=== PATIENT | female | born 1950 | race Caucasian/White ===

== ENCOUNTER 2017-11-08 06:04 | Day surgery (SDC) | payer MEDICARE, OTHER ==
[2017-11-07 10:43] VITALS: BMI 18.6
[2017-11-08] MEDS ORDERED: CEFAZOLIN/Water 2 GM/20 ML SYRINGE ONE (07:09)
[2017-11-08] MEDS ORDERED: Fentanyl 100 MCG/2 ML VIAL ONE ×2 (07:27→08:20)
[2017-11-08] MEDS ORDERED: Midazolam HCl 2 mg/2 ml Vial ONE (07:27)
--- NOTE | 2017-11-08 08:41 | OP ---
DATE OF PROCEDURE: 11/08/2017 PREOPERATIVE DIAGNOSIS: Temporal arteritis. POSTOPERATIVE DIAGNOSIS: Temporal arteritis. PROCEDURE: Left temporal artery biopsy. SURGEON: Gil Calero M.D. ANESTHESIA: General endotracheal. ESTIMATED BLOOD LOSS: Minimal. PROCEDURE IN DETAIL: After consent was obtained, the patient was brought to operating room and placed supine on the operating room table. Appropriate anesthetic monitor was placed and general endotracheal anesthesia. General anesthesia was used as to the patient's previous experiences with any sort of local anesthetic. Left face was prepped and draped in usual sterile fashion. Skin incision was made in a skin crease anterior to the ear, dissection down the temporal artery was obtained with electrocautery and sharply. A segment of temporal artery was removed between 4-0 ties. The wound was then closed in layers. Dermabond was applied to the skin. The patient was awakened, extubated, and transferred to the recovery room in stable condition and will be sent home later today. KALIN
[2017-11-08] MEDS ORDERED: ePHEDrine/0.9% NaCl/PF SYRINGE 50 mg/10 ml ONE (14:34)
[2017-11-08] MEDS ORDERED: Propofol 200 MG/20 ML VIAL ONE (14:34)
== END 2017-11-08 09:15 | disposition home or self-care (01) ==
LOC: SDC 06:04
PROVIDERS: ATTEND Thoracic Surgery (Cardiothoracic Vascular Surgery)
PROC: 03BT0ZX Excision of Left Temporal Artery, Open Approach, Diagnostic (ICD-10-PCS; principal; 2017-11-08)
DX: M31.6 Other giant cell arteritis (principal); D64.9 Anemia, unspecified; E07.9 Disorder of thyroid, unspecified; Z79.52 Long term (current) use of systemic steroids; Z79.899 Other long term (current) drug therapy; Z91.041 Radiographic dye allergy status; Z91.040 Latex allergy status; Z91.018 Allergy to other foods
CPT/HCPCS: 88305; 88313; 93005; 93010; 96374; J2250; J2704; J3010

== ENCOUNTER 2017-11-20 17:40 | Emergency (ER) | payer MEDICARE, OTHER ==
[2017-11-20] MEDS ORDERED: Proparacaine 0.5% Opth 15 ML BOT ONE (20:31)
[2017-11-20 20:53] LABS: #Eosinphils 0.1 thou/uL (0.0-0.7); #Lymphocytes 1.8 thou/uL (1.20-3.40); #Monocytes 0.4 thou/uL (0.11-0.59); #Neutrophils 2.8 thou/uL (1.40-6.50); %Basophils 0.9 % (0.0-1.0); %Eosinophils 2.2 % (0.0-10.0); %Lymphocytes 35.5 % (21.0-51.0); %Monocytes 7.3 % (0.0-10.0); %Neutrophils 54.1 % (42.0-75.0); Hemoglobin 12.6 g/dL (12.0-16.0); Mean Corpuscular HGB CONC 33.5 g/dL (32.0-36.0); Mean Corpuscular Hemoglobin 30.8 pg (27.0-31.0); Mean Platelet Volume 5.7 fL (7.4-10.4); Platelet Count 224 thou/uL (130-400); Red Blood Cell (RBC) Count 4.08 mill/uL (4.20-5.40); White Blood Cell (WBC) Count 5.2 thou/uL (4.8-10.8)
[2017-11-20 21:18] LABS: CKMB 2.2 ng/mL (0-6.6); Troponin I Less than 0.010 ng/mL (< 0.028)
[2017-11-20 21:26] LABS: ALT (SGPT) 18 U/L (8-55); AST (SGOT) 16 U/L (5-34); Albumin 4.3 g/dL (3.4-4.8); Alkaline Phosphatase 72 U/L (40-150); Anion Gap 11 mmol/L (10-20); BUN (Urea Nitrogen) 16 mg/dL (9.8-20.1); Bilirubin, Total 0.5 mg/dL (0.2-1.2); Calc. Creatinine Clearance 0 mL/min (70-130); Carbon Dioxide 26 mmol/L (23-31); Chloride 105 mmol/L (98-107); Estimated GFR-MDRD 79; Globulin 2.3 g/dL (2.4-3.5); Glucose 92 mg/dL (80-115); Potassium 3.6 mmol/L (3.5-5.1); Protein, Total 6.6 g/dL (6.0-8.3); Sodium 138 mmol/L (136-145)
--- NOTE | 2017-11-20 21:39 | CT ---
CT OF THE BRAIN WITHOUT CONTRAST: 11/20/17 INDICATION: Headache. COMPARISON: None. FINDINGS: There is mucosal thickening with sclerotic appearing johns involving the left major sphenoid sinus co nsistent with changes of chronic sinusitis. Mastoid air cells and remaining paranasal sinuses are elvin ar. No acute infarct, hemorrhage, or hydrocephalus is present. Septum pellucidum and third ventricle are midline. IMPRESSION: 1. No acute intracranial abnormality. 2. Findings of chronic sphenoid sinusitis. POS: [facility]
--- NOTE | 2018-01-26 16:22 | EKG ---
Test Reason : Blood Pressure : / mmHG Vent. Rate : 057 BPM Atrial Rate : 057 BPM P-R Int : 154 ms QRS Dur : 076 ms QT Int : 460 ms P-R-T Axes : 069 063 060 degrees QTc Int : 447 ms Sinus bradycardia Otherwise normal ECG Confirmed by KIMMIE Zhou, LOKESH ([id number]), news editor MATTHEW SMITH ([id number] on 01/26/2018 4:22:31 PM Referred By: Confirmed By:LOKESH BURKS M.D.
== END 2017-11-20 22:26 | disposition home or self-care (01) ==
LOC: ERS 17:40
DX: R51 Headache (principal)
CPT/HCPCS: 36415; 70450; 80053; 82553; 84484; 85025; 93005

== ENCOUNTER 2017-12-03 07:36 | Outpatient (CLI) | payer MEDICARE, OTHER ==
[2017-12-03] MEDS ORDERED: Gadobenate Dimeglumine 529 MG/1 ML (20ML VIAL) ONE (09:00)
--- NOTE | 2017-12-03 11:33 | MRI ---
MR ANGIOGRAM OF [place]: Date: 12/03/17 HISTORY: Bursts of temporal headaches. COMPARISON: None. TECHNIQUE: MR angiogram of the [place] is performed in the axial plane. Images are obtained utilizing 3 D [id number] imaging. Maximum intensity projection images are submitted for interpretation. FINDINGS: There is symmetric flow-related signal in the distal cervical and intracranial internal carotid arter ies. Anterior Circulation: Symmetric flow-related signal of the A1 and M1 segments. Symmetric flow-related signal in the proxima l MCA branches and A2 segments. Posterior Circulation: Appropriate flow-related signal in both distal cervical and intracranial vertebral arteries. Limited evaluation of both PICA artery origins. Both vertebral arteries supply a normal appearing basilar art patrick with appropriate flow-related signal. The right [employer]ER has a origin. The left P1 segment is un remarkable. IMPRESSION: Unremarkable MR angiogram of the [place]. POS: OFF
--- NOTE | 2017-12-03 11:35 | MRI ---
BRAIN MRI WITH AND WITHOUT CONTRAST: Date: 12/03/17 INDICATION: Temporal pain. FINDINGS: There is prominence of the ventricular system with mild global atrophy. Minimal chronic microvascular ischemic disease is present. There is no acute territorial infarction or evidence of intracranial he morrhagic susceptibility. Skull base flow-voids are patent where visualized. No restricted diffusion. No pathologic intra-axial enhancement. There is inspissated debris/mucosal thickening of the left ma becca sphenoid air cell. IMPRESSION: 1. No acute intracranial abnormalities. 2. Mild global atrophy. 3. Minimal chronic microvascular ischemic disease. POS: [facility]
--- NOTE | 2017-12-03 11:55 | MRI ---
MR ANGIOGRAM OF NECK WITH CONTRAST: Date: 12/03/17 HISTORY: Temporal headaches. Temporal pain. COMPARISON: None. TECHNIQUE: MR angiogram of the neck was performed in the coronal plane following postcontrast imaging. Three-dim ensional maximum intensity projection images are submitted for interpretation. FINDINGS: There is appropriate enhancement of the visualized aortic arch. Right Carotid: The right carotid artery origin, innominate artery, carotid bifurcation, and internal carotid artery have an overall appropriate enhancement and luminal diameter. There is mild focal outpouching of the right carotid bifurcation with what may be an associated web just proximal to this focal outpouching. Better interrogation with a CT angiogram of the neck is recommended. The right internal carotid melodie ry has appropriate enhancement and luminal diameter. Left Carotid: The left carotid artery origin has appropriate enhancement and luminal diameter. Left common carotid artery, carotid bifurcation, and internal carotid artery have appropriate enhancement and luminal noah meter. Both subclavian arteries are unremarkable. Origin of both vertebral arteries is unremarkable. Short segment mild narrowing involving mid left ve rtebral artery at approximately C4 level. 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 Better interrogation with CT angiogram of the neck is recommended. POS: OFF
== END 2017-12-03 07:37 | disposition home or self-care (01) ==
LOC: SCSMRI 07:36
PROVIDERS: ATTEND Psychiatry & Neurology Neurology
DX: R51 Headache (principal); R42 Dizziness and giddiness; I67.82 Cerebral ischemia; G31.9 Degenerative disease of nervous system, unspecified
CPT/HCPCS: 70544; 70548; 70553; 82565; A9579

== ENCOUNTER 2017-12-28 10:10 | Outpatient (CLI) | payer MEDICARE, OTHER | END 2017-12-28 10:11 | disposition home or self-care (01) | LOC: BICMAMMO 10:10 | PROVIDERS: ATTEND Family Medicine | DX: Z12.31 Encounter for screening mammogram for malignant neoplasm of breast (principal) | CPT/HCPCS: 77063; 77067 ==

== ENCOUNTER 2018-01-01 07:54 | Outpatient (CLI) | payer MEDICARE, OTHER ==
--- NOTE | 2018-01-01 10:29 | CT ---
CT BRAIN NONCONTRAST: 01/01/2018 HISTORY: A 67-year-old female with headache (R51). Attention, base of skull. COMPARISON: Noncontrast CT of 11/20/2017. FINDINGS: There is no midline shift or any other mass effect. There is no evidence of acute intracranial hemor rhage, large cortical infarct, obstructive hydrocephalus, or extraaxial fluid collection. The calvar ium is intact. There is almost total opacification of the left sphenoid air cell, surrounded by scle rosis and osseous mural thickening, indicating that this is a chronic, longstanding process. The lef t sphenoethmoidal recess is narrowed. There is high attenuation material within the anterior aspect of the opacified left sphenoid air cell, suggestive of fungal colonization. There is mild mucosal th ickening at the posterior aspect of the right sphenoid air cell. No destructive osseous lesion of th e skull base is identified. There is diffuse parenchymal volume loss of the brain. There is no inte rval change overall. IMPRESSION: 1. No acute intracranial findings. 2. Chronic, longstanding left sphenoid sinusitis with inspissated mucus and probable fungal coloniza tion. jnr POS: [facility]
== END 2018-01-01 07:55 | disposition home or self-care (01) ==
LOC: TBSIIMAG 07:54
PROVIDERS: ATTEND Neurological Surgery
DX: J32.3 Chronic sphenoidal sinusitis (principal)
CPT/HCPCS: 70450

== ENCOUNTER 2020-07-09 09:17 | Outpatient (CLI) | payer MEDICARE, OTHER ==
--- NOTE | 2020-07-09 12:07 | PET ---
Nuclear medicine FDG PET/CT brain: (Positron emission tomography and computed tomography) DATE: 07/09/2020 HISTORY: 70-year-old female with "mild cognitive impairment, so stated G 31.84" TECHNIQUE: IV injection of F-18 fluorodeoxyglucose (FDG) dose: 7.6 mCi. PET scan and attenuation correction CT performed through brain. FINDINGS:. There is normal uptake in the bilateral occipital lobes, basal ganglia, and thalami. There is abnormally diminished uptake in the posterior and anterior cingulate gyrus, and in the precu neus. There is abnormally diminished uptake in the bilateral parietal lobes. IMPRESSION: Pattern consistent with Alzheimer disease.
== END 2020-07-09 09:18 | disposition home or self-care (01) ==
LOC: PET 09:17
PROVIDERS: ATTEND Psychiatry & Neurology Neurology
DX: G31.84 Mild cognitive impairment of uncertain or unknown etiology (principal)
CPT/HCPCS: 78803; A9552